=== PATIENT | female | born 1955 | race Caucasian/White ===

== ENCOUNTER 2022-10-24 08:00 | Outpatient (CLI) | payer BC, MEDICARE ==
[2022-10-24 21:23] LABS: BACTERIAL VAGINOSIS DNA NEGATIVE (NEGATIVE); CANDIDA GLABRATA DNA NEGATIVE (NEGATIVE); CANDIDA GROUP DNA NEGATIVE (NEGATIVE); CANDIDA KRUSEI DNA NEGATIVE (NEGATIVE); TRICHOMONAS VAGINALIS DNA NEGATIVE (NEGATIVE)
== END 2022-10-24 23:59 | disposition home or self-care (01) ==
LOC: LAB.S 08:00
PROVIDERS: ATTEND Physician Assistant
DX: N76.0 Acute vaginitis (principal); R30.0 Dysuria; R35.0 Frequency of micturition; R31.9 Hematuria, unspecified
CPT/HCPCS: 81514; 87086

== ENCOUNTER 2023-03-16 17:49 | Emergency (ER) | payer MEDICARE ==
[2023-03-16 18:06] VITALS: BP 156/80; O2SAT 99
[2023-03-16] MEDS ORDERED: BACITRACIN ZINC OINT 1 PACKET TOP STA (18:29)
[2023-03-16] MEDS ORDERED: TETANUS/DIPHTHERIA/PERTUSSIS 0.5 ML SYRINGE IM ONE (18:29)
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
== END 2023-03-16 19:00 | disposition home or self-care (01) ==
LOC: ED 17:49
DX: T23.162A Burn of first degree of back of left hand, initial encounter (principal); X10.0XXA Contact with hot drinks, initial encounter; Z91.040 Latex allergy status; Z23 Encounter for immunization
CPT/HCPCS: 90471; 90715; 99282; 99283; A9270

== ENCOUNTER 2023-12-08 14:58 | Outpatient (CLI) | payer MEDICARE ==
--- NOTE | 2023-12-16 07:58 | Mammography Report ---
BILATERAL DIGITAL SCREENING MAMMOGRAM 3D/2D: 12/08/2023 CLINICAL: Routine screening. No prior exams were available for comparison. There are scattered areas of fibroglandular density in both breasts (category b / 25%-50% glandular t issue). There is a focal asymmetry in the right breast at 7 o'clock in the retroareolar region. There is an asymmetry in the left breast anterior depth lateral region seen on the craniocaudal view only. No other significant masses or calcifications are seen in either breast. IMPRESSION: INCOMPLETE: NEEDS ADDITIONAL IMAGING EVALUATION The focal asymmetry in the right breast at 7 o'clock in the retroareolar region is indeterminate. Ad ditional views with possible ultrasound are recommended. The asymmetry in the left breast anterior depth lateral region seen on the craniocaudal view only is indeterminate. Additional views with possible ultrasound are recommended. Based on the Tyrer Cuzick model (a risk assessment model) the patient's lifetime risk is 6.6% and her 10 year risk is 3.6%. According to the ACR, ACS, and NCCN guidelines, an annual breast MRI exam umberto g with mammogram is recommended if the patient's lifetime risk is 20% or greater. This exam was interpreted at Station ID: [id number]. NOTE: For mammograms, a report in lay terms will be sent to the patient. Approximately 15% of breast malignancies will not be visualized mammographically. In the management of a palpable breast mass, a negative mammogram must not discourage biopsy of a clinically suspicious lesion. Electronically Signed By: Srinivas Harrington M.D. lc/:12/15/2023 09:12:27 ACR BI-RADS Category 0: Incomplete 3340F PARENCHYMAL PATTERN: (A) - The breast(s) demonstrate(s) scattered fibroglandular densities. BI-RADS CATEGORY: (0) - 0 Mammo and [place] [id number] Immediate follow-up LATERALITY: (B)
== END 2023-12-08 14:59 | disposition home or self-care (01) ==
LOC: DI.S 14:58
PROVIDERS: ATTEND Nurse Practitioner Family
DX: Z12.31 Encounter for screening mammogram for malignant neoplasm of breast (principal); R92.323 Mammographic fibroglandular density, bilateral breasts; R92.8 Other abnormal and inconclusive findings on diagnostic imaging of breast

== ENCOUNTER 2024-01-01 09:48 | Outpatient (CLI) | payer MEDICARE ==
--- NOTE | 2024-01-02 11:53 | Mammography Report ---
BILATERAL DIGITAL DIAGNOSTIC MAMMOGRAM 3D/2D: 01/01/2024 CLINICAL: Patient returns today to evaluate asymmetries in bilateral breasts. Comparison is made to exam dated: 12/08/2023 mammogram - [facility]. There are scattered areas of fibroglandular density (category b / 25%-50% glandular tissue). The previously described equal density focal asymmetry in the right breast at 6 o'clock in the retroa reolar region is not confirmed in additional views. This is less prominent and decreased in size. There is an equal density asymmetry in the left breast anterior depth lateral region seen on the cran iocaudal view only is not confirmed in additional views. This is less prominent. No other significant masses or calcifications are seen in either breast. IMPRESSION: INCOMPLETE: NEED ADDITIONAL IMAGING EVALUATION The equal density focal asymmetry in the right breast at 6 o'clock in the retroareolar region resembl es fibroglandular tissue and is indeterminate. An ultrasound is recommended for further evaluation a nd is scheduled to immediately follow this examination. The equal density asymmetry in the left breast anterior depth lateral region seen on the craniocaudal view only most likely is fibroglandular tissue and is indeterminate. An ultrasound is recommended f or further evaluation and is scheduled to immediately follow this examination. Based on the Tyrer Cuzick model (a risk assessment model) the patient's lifetime risk is 6.6% and her 10 year risk is 3.6%. According to the ACR, ACS, and NCCN guidelines, an annual breast MRI exam umberto g with mammogram is recommended if the patient's lifetime risk is 20% or greater. This exam was interpreted at Station ID: [id number]. NOTE: For mammograms, a report in lay terms will be sent to the patient. Approximately 15% of breast malignancies will not be visualized mammographically. In the management of a palpable breast mass, a negative mammogram must not discourage biopsy of a clinically suspicious lesion. Electronically Signed By: Jay Calderon M.D. aty/:01/01/2024 15:38:06 ACR BI-RADS Category 0: Incomplete: Need Additional Imaging Evaluation 3340F PARENCHYMAL PATTERN: (A) - The breast(s) demonstrate(s) scattered fibroglandular densities. BI-RADS CATEGORY: (0) - 0 Ultrasound [id number] Immediate follow-up LATERALITY: (B)
--- NOTE | 2024-01-02 11:53 | Ultrasound Report ---
LIMITED ULTRASOUND OF RIGHT BREAST: 01/01/2024 CLINICAL: Patient returns today to evaluate a focal asymmetry in the right breast. Comparison is made to exams dated: 01/01/2024 mammogram and 12/08/2023 mammogram - [facility]. Real-time ultrasound of the right breast retroareolar was performed. Corrales scale images of the real-t eliza examination were reviewed. No significant abnormalities were seen sonographically in the right breast. IMPRESSION: NEGATIVE There is no sonographic evidence of malignancy. There is no abnormality seen in the right breast to correspond with the mammography finding which lik noman represents normal fibroglandular tissue. A 1 year screening mammogram is recommended. Findings and recommendations were conveyed to the patient during today's evaluation. This exam was interpreted at Station ID: [id number]. Electronically Signed By: Jay Calderon M.D. aty/:01/01/2024 15:45:17 ACR BI-RADS Category 1: Negative 3341F BI-RADS CATEGORY: (1) - 1 RECOMMENDATION: (ANNUAL) - Recommend routine annual screening mammography. [id number] 1 year screening LATERALITY: (B)
--- NOTE | 2024-01-02 11:54 | Ultrasound Report ---
LIMITED ULTRASOUND OF LEFT BREAST: 01/01/2024 CLINICAL: Patient returns today to evaluate a focal asymmetry in the left breast. Comparison is made to exams dated: 01/01/2024 mammogram and 12/08/2023 mammogram - [facility]. Real-time ultrasound of the left breast retroareolar was performed. Corrales scale images of the real-t eliza examination were reviewed. No significant abnormalities were seen sonographically in the left breast. IMPRESSION: NEGATIVE There is no sonographic evidence of malignancy. There is no abnormality seen in the left breast to correspond with the mammography finding which like ly represents normal fibroglandular tissue. A 1 year screening mammogram is recommended. Findings and recommendations were conveyed to the patient during today's evaluation. This exam was interpreted at Station ID: [id number]. Electronically Signed By: Jay Calderon M.D. aty/:01/01/2024 15:46:00 ACR BI-RADS Category 1: Negative 3341F BI-RADS CATEGORY: (1) - 1 RECOMMENDATION: (ANNUAL) - Recommend routine annual screening mammography. [id number] 1 year screening LATERALITY: (B)
== END 2024-01-01 09:49 | disposition home or self-care (01) ==
LOC: DI 09:48
PROVIDERS: ATTEND Nurse Practitioner Family
DX: R92.8 Other abnormal and inconclusive findings on diagnostic imaging of breast (principal)